=== PATIENT | male | born 1945 | race Caucasian/White ===

== ENCOUNTER 2020-01-27 07:14 | Outpatient (CLI) | payer OTHER | END 2020-01-27 07:24 | disposition home or self-care (01) | LOC: SONOGRAMA 07:14 | PROVIDERS: ATTEND Urology | DX: R97.20 Elevated prostate specific antigen [PSA] (principal) ==

== ENCOUNTER 2021-05-28 11:10 | Outpatient (CLI) | payer OTHER | END 2021-05-28 11:19 | disposition home or self-care (01) | LOC: RX STUDY 11:10 | DX: J98.6 Disorders of diaphragm (principal) ==